=== PATIENT | female | born 1960 | race Caucasian/White ===

== ENCOUNTER 2020-04-04 16:04 | Emergency (ER) | payer MEDICAID, SELFPAY ==
[2020-04-04 16:45] VITALS: BP 143/83; PULSE 89; RESP 20; TEMP 36.9; O2SAT 93; BMI 20.7
--- NOTE | 2020-04-04 17:24 | [facility].EDGENADL ---
ED Disposition Clinical Impression: Generalized weakness Neuropathy, leg Qualifiers: Laterality: bilateral Qualified Code(s): G57.93 - Unspecified mononeuropathy of bilateral lower limbs Disposition: Home, Self-Care Condition on Discharge: Fair Instructions: DI for Peripheral Neuropathy Additional Instructions: You have been evaluated for neuropathic pain and generalized weakness. Please follow-up with your oncologist tomorrow. Follow-up with your primary care physician as soon as available. Return to the emergency department for any new or worsening symptoms. Prescriptions: Gabapentin [Gabapentin 100mg Cap] 100 mg PO TID 10 Days #30 cap Prescription Printed Referrals: PCP,No [Primary Care Provider] - Time of Disposition: 19:47 - Critical Care Critical Care Time: No Attestation: On 04/04/20, the high probability of a clinically significant, sudden or life threatening deterioration of the following system(s) required my full and direct attention, intervention and personal management. The time I documented below is in addition to time spent performing reported procedures but includes the following listed in this critical care notation. Medical Decision Making - Medical Records Medical records reviewed: Yes: I reviewed the patient's medical records. - Patric Inquiry Pt receiving controlled substance: No Vital Signs: 04/04/20 16:45 04/04/20 17:39 04/04/20 18:09 Temperature 98.4 F Temperature Source Oral Pulse Rate Pulse Rate [Right Radial] 89 85 87 Respiratory Rate 20 Blood Pressure Blood Pressure [Right Arm] 143/83 H 149/87 H 171/85 H Blood Pressure Mean [Right Arm] 103 107 113 Blood Pressure Source Blood Pressure Source [Right Arm] Automatic Cuff Automatic Cuff Automatic Cuff Blood Pressure Position Blood Pressure Position [Right Arm] Sitting Sitting Sitting 02 Sat by Pulse Oximetry 93 L 93 L 94 L Oxygen Delivery Method Room Air Room Air Room Air 04/04/20 19:53 Temperature 98.2 F Temperature Source Oral Pulse Rate 88 Pulse Rate [Right Radial] Respiratory Rate 16 Blood Pressure 168/81 H Blood Pressure [Right Arm] Blood Pressure Mean [Right Arm] Blood Pressure Source Automatic Cuff Blood Pressure Source [Right Arm] Blood Pressure Position Sitting Blood Pressure Position [Right Arm] 02 Sat by Pulse Oximetry Oxygen Delivery Method Room Air - Lab Data Lab Results 04/04/20 18:05: WBC 8.1, RBC 4.13 L, Hgb 12.8, Hct 37.8, MCV 91.5, MCH 31.0, MCHC 33.8, RDW 15.7, Plt Count 318, MPV 8.3, Neut % (Auto) 63.7, Lymph % (Auto) 25.8, [place] % (Auto) 8.4, Eos % (Auto) 1.6, Baso % (Auto) 0.6, Neut # (Auto) 5.2, Lymph # (Auto) 2.1, [place] # (Auto) 0.7, Eos # (Auto) 0.1, Baso # (Auto) 0.1 04/04/20 18:05: Sodium 137, Potassium 3.3 L, Chloride 102, Carbon Dioxide 33 H, Anion Gap 5.3, BUN 5 L, Creatinine 0.50 L, Estimated Creat Clear 53, Estimated GFR 125, Est GFR ( Amer) 152, Glucose 99, Calcium 8.4, Total Bilirubin 0.4, AST 21, ALT 12, Alkaline Phosphatase 114, Total Creatine Kinase 27 L, Total Protein 6.2 L, Albumin 3.2 L, Globulin 3.0, Albumin/Globulin Ratio 1.1 Result diagrams: 04/04/20 18:05 04/04/20 18:05 Orders (Tests/Meds): ED MEDICATIONS Discontinued Medications Generic Name Dose Route Start Last Admin Trade Name Freq PRN Reason Stop Dose Admin Gabapentin 100 mg 04/04/20 19:43 04/04/20 19:49 Gabapentin 100mg Capsule PO 04/04/20 19:44 100 mg ONCE ONE Administration Heparin Sodium (Porcine) 300 unit 04/04/20 19:46 04/04/20 19:49 Heparin Lock Flush 500 Units/5ml Syr IV 04/04/20 19:47 3 ml ONCE ONE Administration ORDERS Category Date Time Status CT head/brain wo con Stat Cat Scan 04/04/20 17:[address] lumbar spine wo con Stat Cat Scan 04/04/20 17:54 Taken UA [Urinalysis and Microscopic] Stat Lab 04/04/20 17:23 Ordered Medical Decision Narrative: In summary this is a 59-year-old female presenting to the emergency de
[2020-04-04 17:39] VITALS: BP 149/87; PULSE 85; O2SAT 93
--- NOTE | 2020-04-04 17:39 | PC.NURSE ---
Records release faxed to [facility] at this time.
--- NOTE | 2020-04-04 17:54 | CT_ITS ---
PROCEDURE: CT HEAD/BRAIN WO CON CLINICAL INDICATION: weakness Recent falls, history of brain and lung cancer COMPARISON: No exams were available for comparison TECHNIQUE: Axial images obtained. All CT scans at the facility use one or more dose reduction, viz: automated exposure control, ma/kV adjustment per patient size (including targeted exams where dose is matched to indication, i.e. head), or iterative reconstruction technique. FINDINGS: No midline shift, mass effect, intracranial hemorrhage, hydrocephalus, or extra-axial fluid collection is evident. There is generalized atrophy with hypoattenuation of the periventricular white matter consistent with microangiopathic changes. The calvarium has an unremarkable appearance. Right-sided mastoid effusion is noted. No sinus air-fluid level. IMPRESSION: No acute intracranial finding Dictated by: Owen Nelson MD 04/05/2020 05:48 Owen Nelson MD in [facility] 04/05/2020 05:48
--- NOTE | 2020-04-04 17:54 | CT_ITS ---
PROCEDURE: CT LUMBAR SPINE WO CON CLINICAL HISTORY: leg weakness Frequent falls with left leg weakness, history of brain and lung cancer COMPARISON: No exams were available for comparison TECHNIQUE: Axial images obtained with sagittal and coronal reformats. All CT scans at the facility use one or more dose reduction, viz: automated exposure control, ma/kV adjustment per patient size (including targeted exams where dose is matched to indication, i.e. head), or iterative reconstruction technique. FINDINGS: There is normal alignment. There is mild generalized osteopenia. Sclerotic focus is present involving the ilium on the right at 15 mm and also in the right sacrum at 8 mm. These could be due to bone islands. Stability may be confirmed with follow-up. Minimal bulging disc is present at L3-L4 and L4-5. There is a small left paracentral disc osteophyte complex at L5-S1. Left iliac artery stent is present. There is a mild amount of retained colonic feces. There is a fusiform infrarenal abdominal aortic aneurysm measuring 3.4 cm in AP dimension. IMPRESSION: 1. No acute fracture. No bony destructive process. 2. Mild bulging disc L3-L4 and L4-5 with a small left paracentral disc osteophyte complex at L5-S1. MRI may provide further evaluation to evaluate for any possible neural impingement 3. 3.4 cm abdominal aortic aneurysm. 4. Small sclerotic foci in the pelvis which may be due to bone islands and may be confirmed with follow-up Dictated by: Owen Nelson MD 04/05/2020 05:59 Owen Nelson MD in [facility] 04/05/2020 05:59
[2020-04-04 18:09] VITALS: BP 171/85; PULSE 87; O2SAT 94
[2020-04-04 18:22] LABS: Chloride 102 mmol/L (98-107)
[2020-04-04 18:23] LABS: Potassium 3.3 mmoL/L (3.5-5.1); Sodium 137 mmol/L (136-145)
[2020-04-04 18:25] LABS: Alanine Aminotransferase 12 U/L (12-78); Alkaline Phosphatase 114 U/L (38-126); Anion Gap 5.3 mEq/L (5-15); Aspartate Amino Transferase 21 U/L (14-36); Bilirubin,Total 0.4 mg/dl (0.2-1.3); Blood Urea Nitrogen 5 mg/dl (7-17); Calcium 8.4 mg/dl (8.4-10.2); Carbon Dioxide 33 mmol/L (22.0-30.0); Creatine Kinase 27 U/L (30-135); Creatinine Clearance Estimated 53 mL/min (50-200); Estimated Glomerular Filt Rate 125 ml/min (>60); GFR (African American) 152 ML/MIN (>60); Glucose 99 mg/dl (74-100)
[2020-04-04 18:26] LABS: Albumin Level 3.2 g/dl (3.5-5.0); Albumin/Globulin Ratio 1.1 (1.1-1.8); Total Protein,Serum 6.2 g/dl (6.3-8.2)
[2020-04-04 18:27] LABS: Basophils # 0.1 K/mm3 (0-0.2); Basophils % 0.6 % (0.1-2.0); Eosinophils # 0.1 K/mm3 (0.0-0.4); Eosinophils % 1.6 % (0.1-12.0); Hematocrit 37.8 % (37.0-47.0); Hemoglobin 12.8 g/dL (12.2-16.2); Lymphocytes # 2.1 K/mm3 (0.7-4.5); Lymphocytes % 25.8 % (10-50); Mean Corpuscular HGB Conc 33.8 g/dL (31.8-35.4); Mean Corpuscular Volume 91.5 fl (81-99); Mean Platelet Volume 8.3 fl (7.4-10.4); Monocytes # 0.7 K/mm3 (0.1-1.0); Monocytes % 8.4 % (1.7-9.3); Neutrophils # 5.2 K/mm3 (1.8-7.8); Neutrophils % 63.7 % (37.0-80.0); Platelet Count 318 K/mm3 (142-424); Red Blood Count 4.13 M/mm3 (4.20-5.40); Red Cell Distribution Width 15.7 % (11.5-17.5); White Blood Count 8.1 K/mm3 (4.8-10.8)
--- NOTE | 2020-04-04 18:40 | PC.NURSE ---
Pt to rad.
--- NOTE | 2020-04-04 19:32 | PC.NURSE ---
speaking with Dr. Valenzuela at oncology
--- NOTE | 2020-04-04 19:37 | PC.NURSE ---
Dr. Topete's associate said the pt can be discharged home and follow up with oncology in the morning and call process control specialist nurse if needed
--- NOTE | 2020-04-04 19:49 | PC.NURSE ---
D/C port access at this time by Ayaan with 3ml Heparin flush.
--- NOTE | 2020-04-04 19:51 | PC.NURSE ---
pt stated she is willing to try it at home and follow up with oncology in the morning. she is able to transfer and ambulate short distances with assistance of of staff. pt is alert and oriented x 4 on D/C assessment
[2020-04-04 19:53] VITALS: BP 168/81; PULSE 88; RESP 16; TEMP 36.8; O2SAT 94
== END 2020-04-04 19:59 | disposition home or self-care (01) ==
PROVIDERS: Emergency Provider Emergency Medicine
DX: G57.93 Unspecified mononeuropathy of bilateral lower limbs (principal); C34.90 Malignant neoplasm of unspecified part of unspecified bronchus or lung; C79.31 Secondary malignant neoplasm of brain; I10 Essential (primary) hypertension; E78.5 Hyperlipidemia, unspecified; K21.9 Gastro-esophageal reflux disease without esophagitis; F17.210 Nicotine dependence, cigarettes, uncomplicated; Z79.899 Other long term (current) drug therapy
CPT/HCPCS: 70450; 72131; 80053; 82550; 85025; 96374; 99283; J1642

== ENCOUNTER → 2020-04-18 14:16 | Outpatient (CLI) | payer MEDICAID, SELFPAY ==
--- NOTE | 2020-04-18 14:47 | XR_ITS ---
PROCEDURE: XR CHEST 2V CLINICAL HISTORY: eval for pneumonia Smoker COMPARISON: No exams were available for comparison FINDINGS: The cardiomediastinal silhouette and pulmonary vascularity are within normal limits. MediPort catheter is present from left subclavian approach. The tip is in the region of the SVC. There are changes of COPD and emphysema. Calcified granuloma is present in the left upper lobe. No acute bony abnormalities. IMPRESSION: COPD with old granulomatous disease, no acute finding Dictated by: Owen Nelson MD 04/18/2020 15:10 Owen Nelson MD in [facility] 04/18/2020 15:10
--- NOTE | 2020-04-18 14:52 | PC.NURSE ---
accessed left chest pac with 20g 3/4 inch de leon needle;flushed with ns;obtained blood return;collected labs;flushed with ns and capped with heparin;deaccessed and covered with 2x2 and bandaid.
[2020-04-18 14:53] LABS: Basophils % 0.1 % (0.1-2.0); Eosinophils # 0.1 K/mm3 (0.0-0.4); Eosinophils % 0.7 % (0.1-12.0); Hematocrit 47.6 % (37.0-47.0); Hemoglobin 15.4 g/dL (12.2-16.2); Lymphocytes # 0.8 K/mm3 (0.7-4.5); Lymphocytes % 5.4 % (10-50); Mean Corpuscular HGB Conc 32.4 g/dL (31.8-35.4); Mean Corpuscular Hemoglobin 30.6 pg (27.0-31.2); Mean Corpuscular Volume 94.6 fl (81-99); Mean Platelet Volume 7.6 fl (7.4-10.4); Monocytes # 0.3 K/mm3 (0.1-1.0); Monocytes % 1.9 % (1.7-9.3); Neutrophils # 14.3 K/mm3 (1.8-7.8); Platelet Count 219 K/mm3 (142-424); Red Blood Count 5.03 M/mm3 (4.20-5.40); Red Cell Distribution Width 16.3 % (11.5-17.5); White Blood Count 15.5 K/mm3 (4.8-10.8)
[2020-04-18 14:59] LABS: MANUAL DIFFERENTIAL MANUAL DIFFERENTIAL (MANUAL DIFF)
[2020-04-18 15:20] LABS: Lymphocytes % 3 % (10-50); Monocytes % 2 % (2-9); Neutrophils % 95 % (42-76); Total Cells Counted 100
[2020-04-18 15:21] LABS: Platelet Estimate Normal; RBC Morphology Normal
[2020-04-18 16:57] LABS: Thyroid Stimulating Hormone 1.35 uIU/mL (0.465-4.68)
[2020-04-18 17:31] LABS: Vitamin B12 465 pg/mL (239-931)
[2020-04-18 19:37] LABS: Alanine Aminotransferase 85 U/L (12-78); Albumin Level 3.5 g/dl (3.5-5.0); Albumin/Globulin Ratio 1.5 (1.1-1.8); Alkaline Phosphatase 116 U/L (38-126); Anion Gap 9.6 mEq/L (5-15); Aspartate Amino Transferase 34 U/L (14-36); Bilirubin,Total 0.6 mg/dl (0.2-1.3); Blood Urea Nitrogen 14 mg/dl (7-17); Carbon Dioxide 33 mmol/L (22.0-30.0); Chloride 98 mmol/L (98-107); Estimated Glomerular Filt Rate 125 ml/min (>60); GFR (African American) 152 ML/MIN (>60); Globulin 2.3 g/dL (1.3-3.2); Glucose 126 mg/dl (74-100); Potassium 3.6 mmoL/L (3.5-5.1); Sodium 137 mmol/L (136-145); Total Protein,Serum 5.8 g/dl (6.3-8.2)
[2020-04-27 18:51] LABS: Miscellaneous Test NEGATIVE
[2020-05-02 11:23] LABS: AChR Binding Abs <0.03 nmol/L (0.00-0.24); AChR Blocking Abs 18 % (0-25); AChR Modulating Ab <12 % (0-20); Anti-Striation (muscle) Abs Negative (Neg:<1:40)
== END ==
PROVIDERS: Visit Provider Specialist
DX: R53.1 Weakness (principal); R47.1 Dysarthria and anarthria; C79.31 Secondary malignant neoplasm of brain; R05 Cough; R09.89 Other specified symptoms and signs involving the circulatory and respiratory systems; R20.0 Anesthesia of skin; R20.2 Paresthesia of skin; R32 Unspecified urinary incontinence
CPT/HCPCS: 36415; 71046; 80053; 82607; 82746; 84238; 84443; 85007; 85025; 86255; J1642